=== PATIENT | female | born 1950 | race Two or more races ===

== ENCOUNTER 2025-02-28 08:15 | Emergency (ER) | payer OTHER ==
[~2025-02-28] VITALS: Ht 157.5 cm; Wt 81.6 kg
[2025-02-28] MEDS ORDERED: LISINOPRIL40 MG (08:59)
[2025-02-28] MEDS ORDERED: METFORMIN HCL500 M3 (08:59)
[2025-02-28] MEDS ORDERED: ASPIRIN 325 MG TABLET.EC PO SCH (09:00)
[2025-02-28] MEDS ORDERED: 0.9 % SODIUM CHLORIDE 1,000 ML IV SCH (09:00)
[2025-02-28] MEDS ORDERED: ASPIRIN 325 MG TABLET.EC PO ONE (09:02)
[2025-02-28] MEDS ORDERED: LISINOPRIL 20 MG TABLET PO ONE (09:15)
[2025-02-28 09:31] LABS: BASO % 0.5 % (0.1-1.2); EOS # 0.38 (0.04-0.54); EOS % 4.7 % (0.7-7.0); HEMATOCRIT 39.1 % (34.1-44.9); HEMOGLOBIN 12.5 g/dL (11.2-15.7); LYMPH % 31.1 % (19.3-53.1); MEAN CORPUSCULAR HEMOGLOBIN 28.7 pg (25.6-32.2); MONO % 11.2 % (4.7-12.5); NEUT # 4.18 (1.56-6.13); NEUT % 52.1 % (34.0-71.1); PLATELET COUNT 290 K/uL (163-369); RED BLOOD COUNT 4.35 M/uL (3.93-5.22); RED CELL DISTRIBUTION WIDTH 12.4 % (11.6-14.4)
[2025-02-28 09:51] LABS: INR 0.96; PROTHROMBIN TIME 10.5 SECONDS (9.0-11.5)
[2025-02-28 10:36] LABS: CALCIUM 9.6 mg/dL (8.5-10.1); CREATININE SERUM 1.07 mg/dL (0.55-1.02); GFR 50.26; POTASSIUM 4.44 mEq/L (3.5-5.1)
[2025-02-28 10:54] LABS: URINE APPEARANCE Clear; URINE BILIRRUBIN Negative (NEGATIVE); URINE BLOOD Negative; URINE COLOR Yellow; URINE GLUCOSE Negative (NEGATIVE); URINE KETONE Negative (NEGATIVE); URINE LEUKOCYTE Trace; URINE NITRATE Negative; URINE PROTEIN Negative (NEGATIVE); URINE UROBILINOGEN 0.2 E.U./dl
[2025-02-28 10:59] LABS: URINE BACTERIA 244.7 uL (0.0-1933); URINE EPITHELIAL CELLS 24.2 uL (0.0-38.8); URINE WBC 69.3 uL (0.0-23.2)
[2025-02-28 11:22] LABS: URINE RBC 1.1 uL (0.0-20.8)
== END 2025-02-28 13:06 | disposition home or self-care (01) ==
LOC: ER 08:15
PROVIDERS: Emergency Medicine
DX: I10 Essential (primary) hypertension (principal); R07.89 Other chest pain; E11.9 Type 2 diabetes mellitus without complications; Z79.84 Long term (current) use of oral hypoglycemic drugs; Z91.013 Allergy to seafood

== ENCOUNTER 2025-07-07 11:33 | Outpatient (CLI) | payer OTHER ==
[~2025-07-07 11:33] MED LIST: LISINOPRIL40 MG; METFORMIN HCL500 M3
== END 2025-07-07 11:36 | disposition home or self-care (01) ==
LOC: RAD 11:33
PROVIDERS: ATTEND Internal Medicine Cardiovascular Disease
DX: M54.2 Cervicalgia (principal)